=== PATIENT | male | born 2000 | race African-American/Black ===

== ENCOUNTER 2020-09-24 13:57 | Emergency (ER) | payer MEDICAID ==
[2020-09-24 14:04] VITALS: BP 136/74
--- NOTE | 2020-09-24 14:38 | ER Document Report ---
HPI - HPI Patient complains to provider of: dental pain Time Seen by Provider: 09/24/20 14:29 Pain Level: 3 Context: 19-year-old male presents to the emergency room complaining of worsening left- sided facial pain for the past 9 days. Today he noticed some swelling along his lower jaw. States he has a bad tooth on the posterior left lower side. States call the dentist today but there were no dentist in the office. States he fractured the tooth several months ago. Has been taking Tylenol with minimal relief. No nausea, no vomiting, no fevers. Associated Symptoms: None Exacerbated by: Other - Chewing Relieved by: Denies Similar symptoms previously: No Recently seen / treated by doctor: No - ROS Systems Reviewed and Negative: Yes All other systems reviewed and negative - EENT Notes: Dental pain, facial swelling - NEURO Neurology: DENIES: Headache - DERM Skin Color: Normal Skin Problems: None Past Medical History - General Information source: Patient - Social History Smoking Status: Current Some Day Smoker Chew tobacco use (# tins/day): No Frequency of alcohol use: Occasional Drug Abuse: None Family History: Reviewed & Not Pertinent Patient has homicidal ideation: No Vertical Provider Document - CONSTITUTIONAL Agree With Documented VS: Yes Exam Limitations: No Limitations General Appearance: Mild Distress - HEENT HEENT: Atraumatic, Normocephalic. negative: Pharyngeal Exudate, Pharyngeal Tenderness, Pharyngeal Erythema, Tympanic Membrane Red, Tympanic Membrane Bulging Notes: Left lower posterior molar cracked, there is a nonfluctuant abscess noted along the gumline and behind the tooth. Tender to palpation. No swelling noted to the left jawline. - NECK Neck: Normal Inspection, Supple, Thyroid Normal. negative: Lymphadenopathy- Left, Lymphadenopathy-Right - RESPIRATORY Respiratory: Breath Sounds Normal, No Respiratory Distress - CARDIOVASCULAR Cardiovascular: Regular Rate, Regular Rhythm, No Murmur - NEURO Level of Consciousness: Awake, Alert Motor/Sensory: No Motor Deficit, No Sensory Deficit - DERM Integumentary: Warm, Dry, No Rash Course - Re-evaluation Re-evalutation: 09/24/20 14:34 Reviewed diagnosis with patient. Counseled take antibiotics as prescribed. Can use heat or ice as needed to help with relief of pain. Tylenol and or Motrin as needed for pain. Follow-up with a dentist as soon as possible. Soft diet. Patient was given strict return to the emergency room guidelines. Return for any new or worsening symptoms. All questions were answered. Patient verbalized understanding and agrees with plan of care. 09/24/20 18:39 - Vital Signs Vital signs: Temp Pulse Resp BP Pulse Ox 98.6 F 62 18 136/74 H 95 09/24/20 14:02 09/24/20 14:02 09/24/20 14:02 09/24/20 14:02 09/24/20 14:02 - Laboratory Results Critical Laboratory Results Reviewed: No Critical Results - Radiology Results Critical Radiology Results Reviewed: No Critical Results Discharge - Discharge Clinical Impression: Pain, dental, Dental abscess Condition: Stable Disposition: HOME, SELF-CARE Instructions: Dental Infection or Abscess ([facility]), Penicillin V K ([facility]), Toothache ([facility]) Additional Instructions: You have been seen for dental pain. It is very important that you follow-up with a dentist for definitive care. Please return if you develop fever greater than 101, swelling in your face, vomiting, difficulty breathing or swallowing, or any other symptoms that are concerning to you. For pain you should take ibuprofen 600 mg every 6 hours as needed. Prescriptions: Penicillin V Potassium [Penicillin Vk 500 mg Tablet] 500 mg PO QID #40 tablet Referrals: KT GUTIERREZ MD [NO LOCAL MD] - Follow up as needed [facility] [Provider Group] - Follow up as needed
== END 2020-09-24 15:00 | disposition home or self-care (01) ==
LOC: ER 13:57
DX: K04.7 Periapical abscess without sinus (principal); F17.200 Nicotine dependence, unspecified, uncomplicated
CPT/HCPCS: 99283